=== PATIENT | female | born 2000 | race American Indian/Alaskan Native ===

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

== ENCOUNTER 2021-01-18 15:02 | Outpatient (CLI) | payer MEDICAID ==
[2021-01-18 15:12] VITALS: BP 128/77
[2021-01-18] MEDS ORDERED: LACTATED RINGERS 1,000 ML IV ONE (16:00)
[2021-01-18] MEDS ORDERED: LACTATED RINGERS 500 ML IV ONE (16:37)
== END 2021-01-18 17:58 | disposition home or self-care (01) ==
LOC: TRG 15:02 → APU 15:04 → TRG 17:58
PROVIDERS: ATTEND Obstetrics & Gynecology
DX: O42.913 Preterm premature rupture of membranes, unspecified as to length of time between rupture and onset of labor, third trimester (principal); O62.9 Abnormality of forces of labor, unspecified; Z3A.31 31 weeks gestation of pregnancy
CPT/HCPCS: 36415; 59025; 84112; J7120; 96360